=== PATIENT | male | born 1975 | race Caucasian/White ===

== ENCOUNTER 2021-03-04 07:09 | Outpatient (REF) | payer OTHER, SELFPAY | END 2021-03-04 07:10 | disposition home or self-care (01) | LOC: HO.LAB 07:09 | PROVIDERS: Visit Provider Psychiatry & Neurology Psychiatry | DX: Z20.822 Contact with and (suspected) exposure to COVID-19 (principal) | CPT/HCPCS: C9803; U0003; U0005 ==